=== PATIENT | female | born 1985 ===

== ENCOUNTER → 2018-12-29 | Outpatient (CLI) | payer OTHER ==
[~2018-12-29] MED LIST: DOCU100 PO; IBUP600 PO; IBUP800 PO; LANTISEPTIC400 GM; Norco 5-325 Ta1 EACH; OXYACE5T PO; Verotin-Gr Cap1 EACH
== END ==
LOC: LAB 09:43 → LAB SHORT 09:43
DX: Z34.80 Encounter for supervision of other normal pregnancy, unspecified trimester (principal)
CPT/HCPCS: 87081; 87653

== ENCOUNTER 2019-01-26 06:06 | Inpatient (IN) | payer OTHER ==
[2019-01-24 10:36] LABS: BASOPHILS ABSOLUTE AUTO 0.03 K/mm3 (0.00-0.23); BASOPHILS PERCENT AUTO 0 % (0-2); EOSINOPHILS ABSOLUTE AUTO 0.18 K/mm3 (0.00-0.68); EOSINOPHILS PERCENT AUTO 2 % (0-6); Hematocrit 32.8 % (33.0-51.0); Hemoglobin 11.1 g/dL (11.5-16.0); IMMATURE GRAN ABSOLUTE AUTO 0.03 K/mm3 (0.00-0.10); IMMATURE GRAN PERCENT AUTO 0 % (0-1); LYMPHOCYTES ABSOLUTE AUTO 2.73 K/mm3 (0.84-5.20); LYMPHOCYTES PERCENT AUTO 27 % (21-46); MONOCYTES ABSOLUTE AUTO 0.52 K/mm3 (0.16-1.47); MONOCYTES PERCENT AUTO 5 % (4-13); Mean Corpuscular HGB 30.2 pg (26.0-34.0); Mean Corpuscular HGB Conc 33.8 g/dL (31.5-36.5); Mean Corpuscular Volume 89 fL (80-100); Mean Platelet Volume 9.6 fL (9.1-12.4); NEUTROPHILS ABSOLUTE AUTO 6.57 K/mm3 (1.96-9.15); NEUTROPHILS PERCENT AUTO 65 % (41-73); Platelet Count 328 K/mm3 (150-400); RDW Coefficient Variation 14.2 % (11.7-14.2); RDW Standard Deviation 46.2 fL (35.1-46.3); Red Blood Cell Count 3.68 M/mm3 (3.80-5.20); White Blood Cell Count 10.06 K/mm3 (4.00-11.30)
[~2019-01-26] VITALS: Ht 154.9 cm; Wt 95.2 kg
[~2019-01-26 06:06] MED LIST changes: -IBUP600 PO; -Norco 5-325 Ta1 EACH
--- NOTE | 2019-01-26 08:37 | NUR ---
01/26/19 0837 Emiliana Ramos REPEAT CEAREAN SECTION WITH BILATERAL SALPINGECTOMY. VIABLE BABY BOY DELIVERED AT [address] BURGOS. WEIGHT 8# 11 OZ ([id number] GRAMS). LENGTH 20.75 INCH. HEAD 14.5 INCHES. CHEST 14 INCHES. APGARS 9/9. RIGHT AND LEFT FALLOPIAN TUBES SENT TO PATHOLOGY.
[2019-01-27 05:54] LABS: Hematocrit 27.5 % (33.0-51.0); Hemoglobin 9.1 g/dL (11.5-16.0); Mean Corpuscular HGB 29.4 pg (26.0-34.0); Mean Corpuscular HGB Conc 33.1 g/dL (31.5-36.5); Mean Corpuscular Volume 89 fL (80-100); Mean Platelet Volume 9.2 fL (9.1-12.4); Platelet Count 275 K/mm3 (150-400); RDW Coefficient Variation 14.3 % (11.7-14.2); RDW Standard Deviation 45.9 fL (35.1-46.3); Red Blood Cell Count 3.09 M/mm3 (3.80-5.20); White Blood Cell Count 13.13 K/mm3 (4.00-11.30)
--- NOTE | 2019-01-27 18:21 | NUR ---
CONSULT. MOM HAS HISTORY OF LOSING MILK SUPPLY AT 6 WEEKS, NO CONTROL HAD BEEN STARTED. HAS HISTORY OF THYROIDSURGERY AND DOES NOT TAKE ANY REPLACEMENT, ALSO PCOS. HAS BEEN PUMPING OFF AND ON, NOT REGULARLY. BABY IS NOT BF WELL YET AND NOT REGULARLY. NOT WILLING TO STAY SUCKLING NOW AFTER HE DID OBTAIN A LATCH. INSTRUCT THE IMPORTANCE OF ESTABLISHING A FULL SUPPLY BY 2 WEEKS TO HELP WITH KEEPING HER SUPPLY AT 6 WEEKS. SHE NEEDS TO PUMP AT LEAST 6-8X/DAY FOR 15-20 MINUTES, ALWAYS PC. INSTRUCT IN CHANGES TO EXPECT DURING THE FIRST WEEK WITH BABY AND WITH FEEDINGS AND REFERRED TO [facility] PAGE 18 FOR PHOTOS AND INFORMATION. BONDING WELL WITH BABY.
[2019-01-28] MEDS ORDERED: IBUP600 PO (09:49)
[2019-01-28] MEDS ORDERED: Norco 5-325 Ta1 EACH (09:50)
--- NOTE | 2019-01-28 10:07 | NUR ---
PARENTS LOVING AND ATTENTIVE TO NB NEEDS. MOM DOING WELL, AMBULATING IN ROOM WELL. READY TO GO HOME. IN ROOM, HELPFUL. TAKING 1 NORCO AT A TIME NOW, BUT REINFORCED TAKING SOME WHEN HOME IF NEEDED. ALL DC TEACHING DONE, ALL QUESTIONS ANSWERED.
--- NOTE | 2019-01-28 10:50 | NUR ---
BANDS MATCHED, AMBULATED OUT WITH NB. DC HOME.
== END 2019-01-28 10:50 | disposition home or self-care (01) | DRG 785 ==
LOC: BC 06:06
PROVIDERS: ADMIT Obstetrics & Gynecology
PROC: 10D00Z1 Extraction of Products of Conception, Low, Open Approach (ICD-10-PCS; principal; 2019-01-26 07:30)
PROC: 0UT70ZZ Resection of Bilateral Fallopian Tubes, Open Approach (ICD-10-PCS; 2019-01-26 07:30)
DX: O34.211 Maternal care for low transverse scar from previous cesarean delivery (principal); Z30.2 Encounter for sterilization; Z3A.39 39 weeks gestation of pregnancy; Z37.0 Single live birth
CPT/HCPCS: 36415; 85025; 85027; 86850; 86900; 86901; 88302; A9270-GY; J0690; J1100; J1885; J2270; J2370; J2405; J2590; J2704; J2765; J3010; J7120